=== PATIENT | female | born 1990 | race American Indian/Alaskan Native ===

== ENCOUNTER 2018-01-14 11:35 | Emergency (ER) | payer OTHER ==
[2018-01-14 11:42] VITALS: BP 112/76
[2018-01-14] MEDS ORDERED: ZOFRAN ODT PO ONE (14:32)
--- NOTE | 2018-01-14 14:35 | Emergency Department Report ---
Chief Complaint: Arrhythmia/Palpitations Stated Complaint: ASTHMA Time Seen by Provider: 01/14/18 14:09 - HPI History of Present Illness: The patient is a 27-year-old female presents for evaluation of chest pain. The patient reports pounding chest pain at 6 AM, severe, improved with rest, and associated with lightheadedness, nausea, and multiple episodes of nonbilious, nonbloody emesis. She has had a secondary complaint of left upper quadrant abdominal pain, mild, cramping, also present for the past 6 hours. The patient denies fever, neck pain, parasthesias, dyspnea, cough, hemoptysis, dizziness, syncope, unilateral leg swelling, calf muscle pain. Patient also denies cocaine or other stimulant use, history of DVT or PE, recent immobilization, or history of cancer. - Exam Vital Signs: Vital Signs 01/14/18 11:38 Temperature 98.3 F Pulse Rate 89 Respiratory 18 Rate Blood Pressure 112/76 O2 Sat by Pulse 100 Oximetry MSE screening note: Focused history and physical exam performed. Due to findings the following was ordered: ED Disposition for MSE Condition: Stable Referrals: PRIMARY CARE, [Primary Care Provider] - 3-5 Days
[2018-01-14 14:50] LABS: Basophils # (Auto) 0.1 K/mm3 (0.0-0.1); Basophils % (Auto) 0.5 % (0.0-1.8); Eosinophils % (Auto) 0.3 % (0.0-4.3); Hematocrit 45.6 % (30.3-42.9); Hemoglobin 14.9 gm/dl (10.1-14.3); Lymphocytes # (Auto) 2.3 K/mm3 (1.2-5.4); Lymphocytes % (Auto) 21.1 % (13.4-35.0); Mean Corpuscular HGB Conc 33 % (30-34); Mean Corpuscular Hemoglobin 30 pg (28-32); Mean Corpuscular Volume 91 fl (79-97); Monocytes # (Auto) 0.4 K/mm3 (0.0-0.8); Platelet Count 404 K/mm3 (140-440); Red Blood Count 5.04 M/mm3 (3.65-5.03); Red Cell Distribution Width 13.8 % (13.2-15.2)
[2018-01-14 15:08] LABS: Alanine Aminotransferase 8 units/L (7-56); Albumin 4.1 g/dL (3.9-5); BUN/Creatinine Ratio 17; Blood Urea Nitrogen 12 mg/dL (7-17); Calcium 9.2 mg/dL (8.4-10.2); Hemolysis Index 5
--- NOTE | 2018-01-14 18:42 | Emergency Department Report ---
ED Palpitations HPI - General Chief Complaint: Arrhythmia/Palpitations Stated Complaint: ASTHMA Time Seen by Provider: 01/14/18 14:09 Source: patient Mode of arrival: Ambulatory Limitations: No Limitations - History of Present Illness Initial Comments: The patient is a 27-year-old female presents for chest pain, nausea and vomiting. The patient reports pounding chest pain at 6 AM, severe, improved with rest, and associated with lightheadedness, nausea, and multiple episodes of nonbilious, nonbloody emesis. She has had a secondary complaint of left upper quadrant abdominal pain, mild, cramping, also present for the past 6 hours. The patient denies fever, neck pain, parasthesias, dyspnea, cough, hemoptysis, dizziness, syncope, unilateral leg swelling, calf muscle pain. Patient also denies cocaine or other stimulant use, history of DVT or PE, recent immobilization, or history of cancer. MD Complaint: palpitations -: This afternoon Context: awoke with symptoms Associated Symptoms: shortness of breath, nausea/vomiting, anxiety. denies: chest pain, syncope, near-syncope, diaphoresis, cough, parasthesias, feeling of impending doom, muscle cramps - Related Data Previous Rx's Medication Instructions Recorded Last Taken Type Sertraline [Zoloft] 25 mg PO QDAY #30 tab 01/14/18 Unknown Rx Allergies Allergy/AdvReac Type Severity Reaction Status Date / Time acetaminophen [From Percocet] Allergy Shortness Verified 01/14/18 11:37 of Breath oxycodone [From Percocet] Allergy Shortness Verified 01/14/18 11:37 of Breath ED Review of Systems ROS: Stated complaint: ASTHMA Other details as noted in HPI Constitutional: denies: chills, fever Respiratory: shortness of breath. denies: cough, wheezing Cardiovascular: palpitations. denies: chest pain Gastrointestinal: nausea, vomiting. denies: abdominal pain, diarrhea Neurological: denies: headache, weakness, paresthesias Psychiatric: denies: anxiety, depression ED Past Medical Hx - Past Medical History Hx Asthma: Yes Additional medical history: herniate disc - Social History Smoking Status: Current Every Day Smoker Substance Use Type: Alcohol, Marijuana - Medications Home Medications: Home Medications Medication Instructions Recorded Confirmed Last Taken Type Sertraline [Zoloft] 25 mg PO QDAY #30 tab 01/14/18 Unknown Rx ED Physical Exam - General Limitations: No Limitations General appearance: alert, in no apparent distress - Respiratory Respiratory exam: Present: normal lung sounds bilaterally. Absent: respiratory distress, wheezes, rales, rhonchi, stridor, accessory muscle use - Cardiovascular Cardiovascular Exam: Present: regular rate, normal rhythm, normal heart sounds. Absent: systolic murmur, diastolic murmur, rubs, gallop - GI/Abdominal GI/Abdominal exam: Present: soft, normal bowel sounds. Absent: distended, tenderness, guarding, rebound, rigid, organomegaly, mass - Neurological Exam Neurological exam: Present: alert, oriented X3, normal gait - Psychiatric Psychiatric exam: Present: depressed, flat affect - Skin Skin exam: Present: warm, dry, intact, normal color. Absent: rash ED Course Vital Signs 01/14/18 11:38 Temperature 98.3 F Pulse Rate 89 Respiratory 18 Rate Blood Pressure 112/76 O2 Sat by Pulse 100 Oximetry ED Medical Decision Making - Lab Data Result diagrams: 01/14/18 14:38 01/14/18 14:38 - Medical Decision Making 27 y.o. female that presents with palpitations and nausea and vomiting started this morning. Current marijuana smoker and asthma. Patient examined by me and Dr. Olson. She is in no distress. Vitals stable. Given zofran 4 mg po once in ER. Obtain CBC, CMP, troponin, BMP, and hCG. Labs are unremarkable. EKG read by Dr. Olson normal sinus rhythm. Patient will follow-up with [facility]. Discharged home stable. Start Zoloft 25 mg by mouth daily. Critical care attestation.: If time is entered above; I have spent that time in minutes in the direct care of this critically ill patient, excluding procedure time. ED Disposition Clinical Impression: Anxiety Disposition: DC-01 TO HOME OR SELFCARE Is pt being admited?: No Does the pt Need Aspirin: No Condition: Stable Instructions: Anxiety (ED) Additional Instructions: Take medication as prescribed. Follow-up with the [facility] for further management of anxiety. Return to the ER if chest pain, shortness of breath, and palpitations. Prescriptions: Sertraline [Zoloft] 25 mg PO QDAY #30 tab Referrals: [facility] [Outside] - 3-5 Days [facility] [Outside] - 3-5 Days Time of Disposition: 18:49 Print Language: UKRAIN[place]
== END 2018-01-14 18:55 | disposition home or self-care (01) ==
LOC: ED 11:35
DX: F41.9 Anxiety disorder, unspecified (principal); F17.200 Nicotine dependence, unspecified, uncomplicated; F12.10 Cannabis abuse, uncomplicated; J45.909 Unspecified asthma, uncomplicated
CPT/HCPCS: 36415; 80053; 83880; 84484; 84703; 85025; 93005; 93010; Q0162